=== PATIENT | male | born 1965 | race Caucasian/White ===

== ENCOUNTER → 2017-07-09 17:03 | Outpatient (CLI) | payer OTHER, SELFPAY ==
[2017-07-09 17:32] LABS: Add Manual Diff / Slide Review NO; Basophils Percent Auto 0.6 % (0-2); Eosinophils Percent Auto 1.3 % (2-4); Hematocrit 38.9 % (41-53); Hemoglobin 13.1 g/dL (13.5-17.5); Mean Corpuscular HGB Conc 33.6 % (30-36); Mean Corpuscular Hemoglobin 28.5 PG (26-34); Mean Corpuscular Volume 84.9 fL (80-100); Monocytes Percent Auto 5.8 % (3-14); Neutrophils Absolute Auto 3200 /uL (3000-5900); Neutrophils Percent Auto 62.3 % (50-75); Platelet Count 203 X10^3/uL (150-400); Red Blood Cell Count 4.59 X10^6/uL (4.5-5.9); Red Cell Distribution Width 14.7 % (11.6-14.8); White Blood Cell Count 5.2 X10^3/uL (4.5-11.0)
[2017-07-09 17:39] LABS: Prothrombin Time 10.7 SECONDS (10.1-12.7)
[2017-07-09 17:42] LABS: PTT Partial Thromboplastin Tim 32 SECONDS (26.4-36.2)
== END ==
PROVIDERS: Visit Provider Specialist
DX: K65.1 Peritoneal abscess (principal)
CPT/HCPCS: 36415; 85025; 85610; 85730

== ENCOUNTER 2020-10-24 08:34 | Emergency (ER) | payer OTHER, SELFPAY ==
[2020-10-24 09:01] VITALS: BP 126/77; PULSE 66; RESP 16; TEMP 36.7; O2SAT 97; BMI 25.5
--- NOTE | 2020-10-24 09:02 | ED_ITS ---
HPI - General Adult General Chief complaint: Extremity Injury, Lower Stated complaint: RIGHT FOOT BIG TOE THINKS BROKEN Time Seen by Provider: 10/24/20 09:01 History of Present Illness HPI narrative: Patient is a 55-year-old male here for evaluation of a right great toe injury. He states that yesterday he dropped a countertop on his toe. He did have bleeding under the nail. He did ?drill hole ?into the nail and has caused some bleeding afterwards. He did cover with a bandage. Arrived to the emergency department today because of continued discomfort. Related Data Allergies Allergy/AdvReac Type Severity Reaction Status Date / Time No Known Drug Allergies Allergy Verified 07/24/17 11:09 Review of Systems Musculoskeletal Comments: Right great toe pain Integumentary/Breasts Comments: Bruising around the right great toe Neurologic Neurologic: Reports system reviewed and no additional complaints, except as documented Hematologic/Lymphatic On Anticoagulants: No Patient History Medical History Healthy adult Social History lives independently: Yes Smoking Status: Never smoker Exam Initial Vital Signs Initial Vital Signs: Vital Signs Temperature 98.0 F 10/24/20 09:01 Pulse Rate 66 10/24/20 09:01 Respiratory Rate 16 10/24/20 09:01 Blood Pressure 126/77 10/24/20 09:01 Pulse Oximetry 97 10/24/20 09:01 Cardio Pulses: dorsalis pedis present on the right Skin Other: Patient does have bruising from the IP joint distally of the right great toe. Neuro Sensory Exam: no sensory deficits noted Extrem Other: Tenderness to palpation the right great toe. There is a small residual subungual hematoma. There are no breaks in the skin noted. There is a hole in his nail consistent with his self-reported trephination. Psych Appearance: grossly normal and well kempt Course Orders Ordered: ED Orders 10/24/20 09:01 XR toe RT min 2V Stat Vital Signs Vital signs: Vital Signs - 8 hr 10/24/20 09:01 Temperature 98.0 F Pulse Rate 66 Respiratory Rate 16 Blood Pressure 126/77 Pulse Oximetry 97 Medical Decision Making Imaging Data Chest x-ray: Radiologist's Impression: [address] [id number] ReportSigned Patient: Eric Zapata EMR#: [id number]: [id number]:[id number]/Sex: 55 / MDate of Service: 10/24/20Loc: EDAccession Number: [id number] Procedure: XR toe RT min 2V Ordering Provider: Phillip Castelan D.O. PROCEDURE: XR TOE RT MIN 2V INDICATIONS: Right great toe injury TECHNIQUE: 3 views of the right 1st toe(s) acquired. COMPARISON: None. FINDINGS: Bones: Comminuted fracture of the 1st distal phalange which extends into the DIP joint. Soft tissues: No suspicious soft tissue densities. IMPRESSION: Comminuted, intra-articular right 1st distal phalange fracture. Dictated by: Pascale Potts MD, PhD on 10/24/2020 at 9:12 Approved by: Pascale Potts MD, PhD on 10/24/2020 at 9:12 [facility] Narrative Medical decision making narrative: Patient is losing some blood from the hole that he put into the toenail himself. There is a very small residual subungual hematoma. X-ray does show a distal phalanx fracture. This does correspond with his injury. He is neurovascularly intact. Patient declined the offer for hard sole shoe. Declined the offer for crutches. No indication for surgical consultation. He was given return precautions and follow-up instructions. He expressed understanding and agreement. Discharge Plan Departure Patient Disposition: Home Clinical Impression: Fracture of toe of right foot, Subungual hematoma Instructions: DI for Toe Fracture Activity Restrictions/Additional Instructions: The x-ray did show a fracture of your right big toe. You can walk on it as tolerated. You can take Tylenol/ibuprofen for discomfort. You can shower like normal. Contact your primary doctor for follow-up. Return to the emergency department for any new or worsening symptoms Referrals: Lorie Osborne DO [Primary Care Provider] -
== END 2020-10-24 09:51 | disposition home or self-care (01) ==
PROVIDERS: Emergency Provider Emergency Medicine; PCP Family Medicine
DX: S92.421A Displaced fracture of distal phalanx of right great toe, initial encounter for closed fracture (principal); S90.111A Contusion of right great toe without damage to nail, initial encounter; W22.8XXA Striking against or struck by other objects, initial encounter
CPT/HCPCS: 73660; 99281; 99283